=== PATIENT | male | born 1980 | race Caucasian/White ===

== ENCOUNTER 2024-06-20 12:43 | Emergency (ER) | payer BC, SELFPAY ==
[2024-06-20 12:45] VITALS: BP 143/94; PULSE 81; RESP 16; TEMP 36.7; O2SAT 98
[2024-06-20] MEDS: TETANUS,DIPHTHERIA,AC PERTUSSIS ADULT (0.5 ML) BOOSTRIX (14:07)
--- NOTE | 2024-06-20 17:47 | ED_ITS ---
HPI - Wound/Laceration General Chief Complaint: Wound/Laceration Stated Complaint: L thumb lac Time Seen by Provider: 06/20/24 12:52 History of Present Illness HPI narrative: 44-year-old male with no significant past medical history presenting to the emergency room with a laceration to his left thumb. Patient was using a knife to cut onions. No significant bleeding, just the distal tip as a small avulsion/laceration. No other previous injuries. His tetanus he thinks his up today. Related Data Allergies Allergy/AdvReac Type Severity Reaction Status Date / Time No Known Allergies Allergy Verified 06/20/24 12:45 Review of Systems Review of Systems: As reviewed above in HPI Exam Narrative: GENERAL: [Well-appearing, well-nourished, and in no acute distress.] HEAD: [Normocephalic, atraumatic.] EYES: [PERRLA and EOMI.] ENT: Nares clear, no rhinorrhea or epistaxis. Mucous membranes moist. NECK: Supple. CHEST: [Clear to auscultation. No respiratory distress.] HEART: [Regular rate and rhythm]. No murmur heard. [Normal peripheral pulses.] ABDOMEN: [Soft, nondistended], [nontender], [No rigidity or guarding] EXTREMITIES: Small 0.5 cm laceration to the distal thumb tip on the left side which appears to just be an avulsion/minor laceration without any significant dehiscence. No bleeding. No nail bed involvement. A SKIN: Warm, dry, no rash. NEURO: [No focal deficits]. Alert and oriented [x3.] PSYCH: [Normal mood and affect.] Course Vital Signs Vital signs: Vital Signs Temperature 36.7 C 06/20/24 12:45 Pulse Rate 81 06/20/24 12:45 Respiratory Rate 16 06/20/24 12:45 Blood Pressure 143/94 H 06/20/24 12:45 Pulse Oximetry 98 06/20/24 12:45 Oxygen Delivery Room Air 06/20/24 12:45 Temperature 36.7 C 06/20/24 12:45 Pulse Rate 81 06/20/24 12:45 Respiratory Rate 16 06/20/24 12:45 Blood Pressure 143/94 H 06/20/24 12:45 Pulse Oximetry 98 06/20/24 12:45 Oxygen Delivery Room Air 06/20/24 12:45 Procedures Laceration Laceration 1: Date: 06/20/24 Time: 13:57 Site: hand Side (If applicable): left Size (cm): 0.5 Description: linear Depth: simple, single layer Local Anesthetic: none Pre-repair: wound explored, irrigated and deep structures intact ====== Skin Level ====== Skin layer closed with: dermabond and steri strips ====== Subcutaneous Layer ====== ====== Muscle Layer ====== ====== Tendon Layer ====== Dressing: Sterile dressing applied over top MDM - Wound/Laceration MDM Narrative Medical decision making narrative: 44-year-old male presents after accidentally sliced his finger is in kitchen knife. Area is clean, no contamination, his tetanus was updated here in the emergency department. Wound repaired with Dermabond and Steri-Strips given the very superficial nature. Patient is satisfied and stable for discharge at this time with instructions on wound care. Medical Records Attestation: I reviewed the patient's medical records. Discharge Plan Discharge Clinical Impression: Avulsion of skin, Laceration Patient Disposition: Home, Self-Care Condition: Stable Instructions: Antibiotic Form, Laceration (ED), Skin Avulsion (ED), Skin Ad hesive Care (ED), Steristrips (ED) Additional Instructions: We repaired her skin avulsion/laceration with Steri-Strips and Dermabond. Keep the area dry for the next 24 hours and then the skin glue and Steri-Strips will be able to flake off on their own after several days. Tylenol and ibuprofen for any pain. We did update her tetanus here in the ED. Follow-up with your regular doctor. return with any new or worsening concerns. Patient Language: Japanese Follow-up/Referrals: PHYSICIAN NOT ON STAFF,NONSTAFF [Non-Staff] - Time of Disposition: 13:23
== END 2024-06-20 14:11 | disposition home or self-care (01) ==
LOC: ANHED 13:26
PROVIDERS: Emergency Provider Student in an Organized Health Care Education/Training Program
DX: S61.012A Laceration without foreign body of left thumb without damage to nail, initial encounter (principal); W26.0XXA Contact with knife, initial encounter; Z23 Encounter for immunization
CPT/HCPCS: 12001; 90471; 90715; 99282